=== PATIENT | female | born 2000 | race Caucasian/White ===

== ENCOUNTER 2024-08-23 18:00 | Inpatient (IN) | payer BC, MEDICAID ==
[~2024-08-23 18:00] MED LIST: HYDROcodone/Acetaminophen 5/325 mg Tablet PO PRN; Ibuprofen 800 MG TAB PO PRN; Lidocaine 1% (PF) 30 ML VIAL SC PRN; Ondansetron PF 4 MG/2 ML Vial IVP PRN; Oxytocin 30 units/NS 500 ML 500 ML IV SCH; Promethazine HCl 25 MG/ML VIAL IM PRN; hydrALAZINE 20 MG/ML VIAL SLOW IVP PRN
[2024-08-23 21:38] VITALS: BMI 34.3
[2024-08-23] MEDS: Misoprostol 100 MCG TAB VAG SCH (22:08)
[2024-08-23 23:07] LABS: Hematocrit 35.2 % (34.9-44.5); Hemoglobin 11.2 g/dL (12.0-15.5); Mean Corpuscular HGB CONC 31.8 g/dL (32.0-36.0); Mean Corpuscular Hemoglobin 27.1 pg (27.0-33.0); Mean Corpuscular Volume 85.2 fL (81.6-98.3); Mean Platelet Volume 11.7 fL (7.4-10.4); Platelet Count 235 10x3/uL (150-450); RBC Distribution Width 14.1 % (11.5-14.5); Red Blood Cell (RBC) Count 4.13 10x6/uL (3.90-5.03); White Blood Cell (WBC) Count 11.3 10x3/uL (3.5-10.5)
[2024-08-23 23:29] LABS: HBsAg Index 0.25 S/CO (0-0.99); Hep B Surf Ag - L&D Non-Reactive S/CO (NonReactive)
[2024-08-23 23:31] LABS: Syphilis Antibody Nonreactive (Nonreactive); Syphilis Antibody Index 0.04 S/CO (<1.00 Non-Reactive)
[2024-08-23] MEDS: Lactated Ringer's 1,000 ML IV SCH (23:59)
[2024-08-24] MEDS: Misoprostol 100 MCG TAB VAG SCH (03:04)
[2024-08-24] MEDS: fentaNYL 50 mcg/mL 1 mL Vial SLOW IVP PRN (03:22)
[2024-08-24] MEDS: Penicillin G Potassium 5 MILL.UNITS in Sodium Chloride 0.9% 100 ML IVPB SCH (05:04)
[2024-08-24] MEDS ORDERED: Naloxone HCl 0.4 mg/ml Vial IVP PRN ×2 (05:48)
[2024-08-24] MEDS ORDERED: Acetaminophen 325 MG TAB PO PRN (05:48)
[2024-08-24] MEDS ORDERED: Moisturizing Cream (Eucerin) 113 GM JAR TOP PRN (05:48)
[2024-08-24] MEDS ORDERED: Promethazine HCl 25 MG/ML VIAL IM PRN (05:48)
[2024-08-24] MEDS ORDERED: ePHEDrine Sulfate 50 MG/10 ML VIAL SLOW IVP PRN (05:48)
[2024-08-24] MEDS ORDERED: Lactated Ringer's 500 ML IV PRN (05:48)
[2024-08-24] MEDS ORDERED: diphenhydrAMINE 50 MG/ML VIAL IVP PRN (05:48)
[2024-08-24] MEDS ORDERED: Ondansetron PF 4 MG/2 ML Vial IVP PRN ×2 (05:48→16:38)
[2024-08-24] MEDS ORDERED: Communication Order-Pharmacy FS SCH (06:00)
[2024-08-24] MEDS ORDERED: fentaNYL 2 mcg/Ropivacaine 0.2% Epidural 100 ML CADD EPIDURAL SCH (06:00)
[2024-08-24] MEDS: Penicillin G 2.5 MILL.units 2.5 MILL.UNITS in Premix 1 BAG IVPB SCH (09:05)
[2024-08-24] MEDS ORDERED: Terbutaline Sulfate 1 MG/ML VIAL ONE (14:00)
[2024-08-24] MEDS ORDERED: diphenhydrAMINE 25 MG CAP PO PRN (16:38)
[2024-08-24] MEDS ORDERED: Bisacodyl 10 MG SUPP PR PRN (16:38)
[2024-08-24] MEDS ORDERED: Preparation H Ointment 28 GM TUBE PR PRN (16:38)
[2024-08-24] MEDS ORDERED: Milk Of Magnesia 30 ML UDCUP PO PRN (16:38)
[2024-08-24] MEDS ORDERED: Benzocaine-Menthol 82.5 ML CAN TOP PRN (16:38)
[2024-08-24] MEDS ORDERED: Lanolin Ointment 7 GM TUBE TOP PRN (16:38)
[2024-08-24] MEDS ORDERED: hydrALAZINE 20 MG/ML VIAL SLOW IVP PRN (16:38)
[2024-08-24] MEDS ORDERED: Oxytocin 30 units/NS 500 ML 500 ML IV SCH (16:38)
[2024-08-24] MEDS ORDERED: HYDROcodone/Acetaminophen 5/325 mg Tablet PO PRN ×2 (16:38)
[2024-08-24] MEDS: fentaNYL 50 mcg/mL 1 mL Vial ONE (16:39)
[2024-08-24] MEDS: Ferrous Sulfate 325 MG TAB PO SCH (17:04)
[2024-08-24] MEDS: Boostrix 0.5 ML (Tdap) VIAL (>/=7 yrs of age) IM ONE (17:05)
[2024-08-24] MEDS: Ibuprofen 800 MG TAB PO SCH (17:17)
[2024-08-24] MEDS: Docusate 100 MG CAP PO SCH (21:27)
[2024-08-25] MEDS: Prenatal Vitamin 1 TAB PO SCH (07:35)
[2024-08-26 07:38] VITALS: BP 90/53; TEMP 98.5
== END 2024-08-26 13:30 | disposition home or self-care (01) | DRG 807 ==
LOC: CSHLD 20:34 → CSHPP 08-24 15:55
PROVIDERS: ADMIT Obstetrics & Gynecology; ATTEND Obstetrics & Gynecology
PROC: 10E0XZZ Delivery of Products of Conception, External Approach (ICD-10-PCS; principal; 2024-08-24)
PROC: 0HQ9XZZ Repair Perineum Skin, External Approach (ICD-10-PCS; 2024-08-24)
DX: O70.0 First degree perineal laceration during delivery (principal); Z37.0 Single live birth; Z3A.40 40 weeks gestation of pregnancy
CPT/HCPCS: 36415; 51702; 85027; 86780; 86850; 86900; 86901; 87340; J2540; J3010; J3105; J7120